=== PATIENT | male | born 1975 | race Caucasian/White ===

== ENCOUNTER → 2018-10-30 | Outpatient (CLI) | payer OTHER ==
--- NOTE | 2018-10-30 08:58 | KCIC ---
MRI left knee without contrast dated 10/30/2018. No comparison available. CLINICAL INDICATION: Left knee pain. TECHNIQUE: Routine multiplanar multisequence MR imaging performed. FINDINGS: Bone marrow signal is homogeneous. No marrow edema. Mild tricompartment hypertrophic change with mild thinning and surface irregularity of the articular cartilage. No full-thickness cartilage defect. Near full-thickness cartilage loss at the trochlear groove. Small joint effusion. No significant popliteal cyst. No intra-articular loose body. Anterior cruciate and posterior cruciate ligaments intact. Medial and lateral collateral complexes intact. Iliotibial band, popliteus tendon and pes anserine complex within normal limits. Quadriceps and patellar tendon are intact. No abnormality of the medial or lateral retinaculum. There is mild prepatellar and superficial infrapatellar edema, nonspecific. Both menisci are normal in morphology and signal. No articular surface tear or para meniscal cyst discoid variant lateral meniscus. IMPRESSION: 1. No evidence of internal derangement. 2. 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 3. Small joint effusion. Electronically signed by: Kody Lynn MD (10/30/2018 8:55 AM) [id number]
== END | disposition home or self-care (01) ==
LOC: KCIC MRI 07:36
PROVIDERS: ATTEND Family Medicine
DX: M17.12 Unilateral primary osteoarthritis, left knee (principal); M25.462 Effusion, left knee; M89.38 Hypertrophy of bone, other site
CPT/HCPCS: 73721